=== PATIENT | male | born 1980 | race Caucasian/White ===

== ENCOUNTER 2020-01-28 16:14 | Observation (INO) ==
[2020-01-28 16:56] LABS: Bilirubin,Urine Negative (Negative); Blood,Urine Negative (Negative); Clarity,Urine Clear (Clear); Color,Urine Dark Yellow (Yellow); Glucose,Urine (UA) Normal (Normal); Ketones,Urine Negative (Negative); Leukocyte Esterase,Urine Negative (Negative); Nitrite,Urine Negative (Negative); PH,Urine 7.5 pH Units (5.0-8.0); Protein,Urine Negative (Neg-Trace); Specific Gravity,Urine 1.023 (1.010-1.025)
[2020-01-28] MEDS ORDERED: Isovue-370 500 ML BOTTLE IVP ONE (17:26)
[2020-01-28] MEDS ORDERED: *HR* FentaNYL (PF) 100 MCG/2 ML VIAL IVP ONE (17:27)
[2020-01-28] MEDS ORDERED: 0.9 % Sodium Chloride 1,000 ML IVC SCH (22:15)
[2020-01-28] MEDS ORDERED: Acetaminophen 325 MG TABLET PO PRN (22:15)
[2020-01-28] MEDS ORDERED: Ondansetron 4 MG/2 ML VIAL IVP PRN (22:15)
[2020-01-28] MEDS ORDERED: Naloxone 0.4 MG/ML INJ IVP PRN (22:15)
[2020-01-28] MEDS ORDERED: *HR* LORazepam 2 MG/ML VIAL IVP PRN (22:38)
[2020-01-28] MEDS: Folic Acid 1 MG TABLET PO SCH (22:57)
[2020-01-28] MEDS: Thiamine (B-1) 100 MG TABLET PO SCH (22:57)
[2020-01-28] MEDS: Ringers Solution, Lactated 1,000 ML IVC SCH (22:59)
[2020-01-29 00:36] LABS: Bilirubin,Urine Negative (Negative); Blood,Urine Negative (Negative); Clarity,Urine Clear (Clear); Color,Urine Dark Yellow (Yellow); Glucose,Urine (UA) Normal (Normal); Ketones,Urine 40 mg/dL (Negative); Leukocyte Esterase,Urine Negative (Negative); Nitrite,Urine Negative (Negative); Protein,Urine Negative (Neg-Trace); Specific Gravity,Urine > 1.030 (1.010-1.025)
[2020-01-29] MEDS: Ringers Solution, Lactated 1,000 ML IVC SCH (06:06)
[2020-01-29 06:21] LABS: Basophils % 0.3 %; Eosinophils # 0.1 K/mcL (0.0-0.6); Eosinophils % 0.5 %; Hemoglobin 13.9 g/dL (12.9-16.9); Immature Granulocytes % 0.3 % (0-4); Lymphocytes # 1.5 K/mcL (0.6-4.6); Lymphocytes % 12.5 %; Mean Corpuscular HGB Conc 33.1 g/dL (31.6-35.5); Mean Corpuscular Hemoglobin 32.1 pg (28.0-33.3); Mean Platelet Volume 10.1 fL (9.4-12.4); Monocytes # 0.8 K/mcL (0.0-1.3); Monocytes % 6.4 %; Neutrophils # 9.7 K/mcL (1.6-8.9); Platelet Count 251 K/mcL (140-400); Red Blood Count 4.33 M/mcL (4.19-5.50); Red Cell Distribution Width 13.2 % (11.5-14.5); White Blood Count 12.2 K/mcL (4.3-11.1)
[2020-01-29 06:38] LABS: Alanine Aminotransferase 26 Units/L (7-52); Albumin 4.1 g/dL (3.5-5.7); Albumin/Globulin Ratio 1.7 (1.1-2.2); Alkaline Phosphatase 77 Units/L (34-104); Aspartate Amino Transferase 23 Units/L (13-39); BUN/Creatinine Ratio 11 (6-26); Bilirubin,Total 1.4 mg/dL (0.3-1.0); Blood Urea Nitrogen 9 mg/dL (6-20); Calcium 9.3 mg/dL (8.6-10.3); Carbon Dioxide 24 mEq/L (23-29); Chloride 105 mEq/L (98-107); Globulin 2.4 g/dL (2.4-3.5); Glucose 93 mg/dL (70-105); Magnesium 2.2 mg/dL (1.6-2.6); Osmolality,Calculated 284 (280-300); Phosphorous 3.4 mg/dL (2.7-4.5); Potassium 3.7 mEq/L (3.5-5.1); Sodium 138 mEq/L (136-145); Total Protein 6.5 g/dL (6.4-8.9); eGFR For African Americans > 60 (> 60); eGFR For Non-African Americans > 60 (> 60)
[2020-01-29 07:51] VITALS: BP 147/88
[2020-01-29 08:26] LABS: Albumin 4.3 g/dL (3.5-5.7); Albumin/Globulin Ratio 1.5 (1.1-2.2); Bilirubin,Direct 0.4 mg/dL (0.0-0.2); Bilirubin,Indirect 1.2 mg/dL (0.0-1.0); Bilirubin,Total 1.6 mg/dL (0.3-1.0); Globulin 2.9 g/dL (2.4-3.5); Total Protein 7.2 g/dL (6.4-8.9)
[2020-01-29] MEDS: Thiamine (B-1) 100 MG TABLET PO SCH (08:26)
[2020-01-29] MEDS: Folic Acid 1 MG TABLET PO SCH (08:26)
[2020-01-29 09:36] LABS: Amphetamine Screen,Urine Negative ng/mL (Cutoff=1000); Barbiturate Screen,Urine Negative ng/mL (Cutoff=200); Benzodiazepines Screen,Urine Negative ng/mL (Cutoff=200); Cannabinoid Screen,Urine Negative ng/mL (Cutoff = 50); Cocaine Screen,Urine Negative ng/mL (Cutoff= 300); Opiate Screen,Urine Negative ng/mL (Cutoff=300); Phencyclidine Screen,Urine Negative ng/mL (Cutoff=25)
== END 2020-01-29 11:40 | disposition home or self-care (01) ==
LOC: 3ANU 16:14 → EMEROOARM 16:14 → SUATTDRO 19:58 → 3ANU 20:43
PROVIDERS: ADMIT Student in an Organized Health Care Education/Training Program; ATTEND Pharmacist